=== PATIENT | female | born 1970 | race Caucasian/White ===

== ENCOUNTER 2022-08-26 17:59 | Emergency (ER) | payer MEDICAID, OTHER ==
[~2022-08-26] VITALS: Ht 160 cm; Wt 68.0 kg
--- NOTE | 2022-08-26 18:45 | NUR ---
RECEIVED PT IN NAD; COMPLAINS OF FLU LIKE SYMPTOMS. COVID POSITIVE
--- NOTE | 2022-08-26 19:15 | NUR ---
Received report from RACHNA Belle.
--- NOTE | 2022-08-26 19:26 | NUR ---
SBAR TO SARITA BRISCOE
[2022-08-26 19:40] LABS: CREATININE 0.8 mg/dL (0.6-1.3); POTASSIUM 3.7 mmol/L (3.5-5.1)
[2022-08-26] MEDS ORDERED: RITO100T PO (21:18)
[2022-08-26] MEDS ORDERED: NIRMATRELVIR PO (21:18)
[2022-08-26] MEDS ORDERED: BENZ200C53 PO (21:18)
--- NOTE | 2022-08-26 21:25 | NUR ---
Patient discharged to home in stable condition. A/O x 4. NAD noted. Ambulatory with a steady gait. All belongings with patient. Written and verbal after care instructions given. Patient verbalizes understanding of instructions. Stressed follow up or return to ER for worsening s/s.
[2022-08-26 21:39] VITALS: BP 139/70
== END 2022-08-26 21:25 | disposition home or self-care (01) ==
LOC: ER 17:59
DX: U07.1 COVID-19 (principal); I10 Essential (primary) hypertension; E78.00 Pure hypercholesterolemia, unspecified; Z87.01 Personal history of pneumonia (recurrent); Z87.442 Personal history of urinary calculi
CPT/HCPCS: 36415; 71045; A4663